=== PATIENT | female | born 1985 | race Caucasian/White ===

== ENCOUNTER → 2020-08-20 | Outpatient (CLI) | payer OTHER ==
[~2020-08-20] MED LIST: AMOXICILLIN500 MG PO; BACTRIM DS TAB1 EACH PO; MEDROL4 MG PO; NAPROSYN500 MG PO
== END ==
LOC: RAD 09:07
DX: R06.02 Shortness of breath (principal)
CPT/HCPCS: 71046

== ENCOUNTER 2020-08-29 12:33 | Emergency (ER) | payer OTHER ==
[~2020-08-29 12:33] MED LIST changes: -MEDROL4 MG PO
[2020-08-29] MEDS ORDERED: MEDROL4 MG PO (15:26)
== END 2020-08-29 16:10 | disposition home or self-care (01) ==
LOC: ER1 12:33
DX: J44.9 Chronic obstructive pulmonary disease, unspecified (principal); J06.9 Acute upper respiratory infection, unspecified; M19.90 Unspecified osteoarthritis, unspecified site; Z79.899 Other long term (current) drug therapy; Z87.891 Personal history of nicotine dependence; Z20.822 Contact with and (suspected) exposure to COVID-19
CPT/HCPCS: 0240U; 71045; 87081; 87880; 96372; 99285; J1885

== ENCOUNTER 2021-04-03 22:10 | Emergency (ER) | payer OTHER ==
[~2021-04-03 22:10] MED LIST changes: +MEDROL4 MG PO
[2021-04-03] MEDS ORDERED: IBUPROFEN600 MG PO (22:52)
[2021-04-03] MEDS ORDERED: CEPHALEXIN500 M1 PO (23:29)
== END 2021-04-03 23:32 | disposition home or self-care (01) ==
LOC: ER1 22:10
DX: S81.811A Laceration without foreign body, right lower leg, initial encounter (principal); J44.9 Chronic obstructive pulmonary disease, unspecified; W26.8XXA Contact with other sharp object(s), not elsewhere classified, initial encounter; Y92.511 Restaurant or cafe as the place of occurrence of the external cause
CPT/HCPCS: 12002; 73590; 99283